=== PATIENT | female | born 1965 | race African-American/Black ===

== ENCOUNTER 2019-07-05 21:29 | Emergency (ER) | payer MEDICARE, SELFPAY ==
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
[2019-07-05 21:31] VITALS: BP 141/93; PULSE 85; RESP 16; TEMP 36; O2SAT 99
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
--- NOTE | 2019-07-05 21:51 | ECG_ITS ---
Measurements Intervals [place] Rate: 80 P: 69 NC: 166 QRS: 18 QRSD: 85 T: 32 QT: 383 QTc: 443 Interpretive Statements SINUS RHYTHM NORMAL ECG Electronically Signed On 07-06-2019 7:06:23 CDT by Hector Pina D.O.
[2019-07-05 21:58] VITALS: BP 144/95; PULSE 85; RESP 14; O2SAT 99
[2019-07-05 22:00] VITALS: PULSE 82; RESP 20
[2019-07-05] MEDS: ALBUTEROL SULFATE NEB 2.5 MG/0.5 ML INH 5 MG INHALATION (22:08)
[2019-07-05] MEDS: IPRATROPIUM BR 0.02% INH SOLN 0.5 MG/2.5 ML VIAL INHALATION (22:09)
[2019-07-05 22:17] VITALS: PULSE 84; RESP 20
[2019-07-05 22:49] VITALS: BP 131/86; PULSE 86; RESP 17; O2SAT 97
[2019-07-05 23:30] VITALS: BP 119/84; PULSE 84; RESP 18; O2SAT 99
[2019-07-06 00:10] VITALS: BP 124/81; PULSE 82; RESP 16; TEMP 36.9; O2SAT 99
== END 2019-07-06 00:12 | disposition home or self-care (01) ==
PROVIDERS: Emergency Provider Emergency Medicine; PCP Internal Medicine Infectious Disease
DX: J40 Bronchitis, not specified as acute or chronic (principal); Z90.49 Acquired absence of other specified parts of digestive tract
CPT/HCPCS: 71046; 93005; 94640; 99283

== ENCOUNTER 2021-06-25 12:30 | Emergency (ER) | payer MEDICARE, SELFPAY ==
[2021-06-25] VITALS (21 sets, daily range): BP systolic 101–138; BP diastolic 74–92; PULSE 59–85; RESP 10–23; TEMP 36.9; O2SAT 95–100
--- NOTE | ~2021-06-25 | XR_ITS ---
EXAMINATION: XR chest 2V EXAM DATE: 06/25/2021 12:52 INDICATION: Midsternal chest pain for several days. TECHNIQUE: Frontal and lateral projections of the chest obtained and reviewed. There is no prior arsenio dy for comparison. FINDINGS: The lungs are clear. There are no pleural effusions. The cardiomediastinal silhouette is within normal limits. There is no pneumothorax suspected. The bones and soft tissues are unremarkab le. IMPRESSION: No acute cardiopulmonary findings. Reviewed, dictated and finalized at location A. [employer] HELPER
--- NOTE | 2021-06-25 12:34 | ECG_ITS ---
Measurements Intervals [place] Rate: 76 P: 63 SD: 166 QRS: 16 QRSD: 78 T: 30 QT: 399 QTc: 449 Interpretive Statements SINUS RHYTHM NORMAL ECG COMPARED TO ECG 07/05/2019 22:06:18 NO SIGNIFICANT CHANGES Electronically Signed On 06-25-2021 15:49:11 [employer] by Lito More M.D.
--- NOTE | 2021-06-25 12:44 | ED.CHESTPAIN ---
HPI - Chest Pain General Chief Complaint: Chest Pain Stated Complaint: chest pain Time Seen by Provider: 06/25/21 12:34 Source: RN notes reviewed History of Present Illness HPI narrative: Patient presents emergency room from home for chest pain. Patient states the pain is located over the midsternal chest and radiates under the bilateral breasts the pain described as sharp and stabbing. Pain began 3 days ago and is intermittent and last for approximately 5 minutes at a time and is worse with movement of the torso and improves with rest she denies any fevers or chills shortness of breath abdominal pain nausea or vomiting states she not taking thing for the pain denies any previous cardiac history Related Data Allergies Allergy/AdvReac Type Severity Reaction Status Date / Time No Known Allergies Allergy Unverified 10/16/15 09:48 Review of Systems Review of Systems: Gen.: Denies fevers or chills ENT: Denies congestion Respiratory: Denies shortness of breath or cough CV: See HPI GI: Denies abdominal pain nausea, emesis or diarrhea Musculoskeletal: Denies back pain or muscle pain Neuro: Denies numbness, tingling, weakness or focal weakness Skin: Denies rash Except as documented, all other systems reviewed and negative PMFSH Past Medical History Medical History Arthritis Colon cancer Retained ureteral stent Surgical History Surgical History (Updated 07/05/19 @ 22:00 by Cait Castro) H/O colostomy H/O: hysterectomy History of colon resection Social History Social History Smoking status: Current every day smoker Exam Narrative: APPEARANCE: No acute distress, nontoxic, resting in bed EYES: EOMI HEENT: Normocephalic, atraumatic, OMM RESPIRATORY: No respiratory distress Clear to auscultation bilaterally with no rhonchi wheezing or rales. CARDIOVASCULAR: Regular rate and rhythm without murmurs rubs or gallops. Chest: Tender palpation with point tenderness over the right lower chest and region of ribs 7 and 8 just to the right of the sternum pain increased with rotation of torso and flame motion ABDOMINAL: Soft, nontender, nondistended, no rebound or guarding MUSCULOSKELETAl: Moves all extremities. No clubbing, cyanosis or edema. NEURO: Awake and alert. Following commands, speech normal, no focal deficits SKIN:: Warm, dry. No rashes lesions or abrasions PSYCHIATRIC: Normal affect/mood, Course Course Emergency Course: Patient does have chest pain was seen up that resolves when she lays down Discussed with patient results of workup and diagnosis. Discussed need for follow-up with primary care, proper use of medication, and reasons to return to the emergency department. Patient understands and agrees to current treatment plan Vital Signs Vital signs: Vital Signs Temperature 98.5 F 06/25/21 12:34 Pulse Rate 85 06/25/21 12:34 Respiratory Rate 19 06/25/21 12:34 Blood Pressure 138/92 H 06/25/21 12:34 Pulse Oximetry 99 06/25/21 12:34 Temperature 98.5 F 06/25/21 12:34 Pulse Rate 59 L 06/25/21 15:52 Respiratory Rate 15 06/25/21 15:52 Blood Pressure 123/82 06/25/21 15:52 Pulse Oximetry 100 06/25/21 15:52 MDM - Chest Pain MDM Narrative Medical decision making narrative: Patient's EKGs and labs are without significant high risk changes. Cardiac risk factors reviewed. Patient is felt likely low risk for ACS and reasonable for further risk stratification testing as an outpatient. Pain was not sudden or maximal in onset without tearing or ripping quality. No other signs of symptoms suggest aortic dissection. A low-risk Wells criteria is noted, PE is felt to be unlikely. No pneumonia seen on evaluation today. Patient is felt to be a reasonable candidate for continued evaluation as an outpatient Lab Data Result diagrams: 06/25/21 12:40 06/25/21 13:28 Labs:
[2021-06-25 12:45] LABS: Basophils Absolute Auto 0.1 K/mm3 (0.0-0.1); Eosinophils Absolute Auto 0.1 K/mm3 (0-0.3); Eosinophils Percent Auto 1.8 % (0-4.4); Hematocrit 41.3 % (37.0-47.0); Hemoglobin 13.3 g/dL (12.0-15.0); Immature Granulocyte Absolute 0.03 K/mm3 (0.00-0.031); Immature Granulocyte Percent A 0.4 % (0-0.5); Lymphocytes Absolute Auto 3.69 K/mm3 (0.9-3.2); Mean Corpuscular HGB Conc 32.2 g/dl (32-36); Mean Corpuscular Volume 96.3 fl (80-100); Mean Platelet Volume 10.2 fl (7.4-10.4); Monocytes Absolute Auto 0.5 K/mm3 (0.1-0.6); Monocytes Percent Auto 7.9 % (2.6-8.5); Neutrophils Absolute Auto 2.3 K/mm3 (1.3-6.7); Neutrophils Percent Auto 33.9 % (45.5-73.1); Platelet Count Result 266 k/mm3 (150-375); Red Blood Count 4.29 M/mm3 (4.2-5.4); White Blood Count 6.7 K/mm3 (4.5-10.0)
[2021-06-25] MEDS: KETOROLAC 30 MG/ML VIAL (*BKC) IV PUSH (12:53)
[2021-06-25 13:00] LABS: Prothrombin Time 12.7 Seconds (11.1-14.7)
[2021-06-25 13:01] LABS: Partial Thromboplastin Time 27.4 SECONDS (22.3-36.8)
[2021-06-25 13:13] LABS: D Dimer 0.28 ug/mL (<0.48)
[2021-06-25 13:49] LABS: Alanine Aminotransferase 34 U/L (4-35); Alkaline Phosphatase 67 U/L (38-126); Anion Gap 6 mmol/L (8-16); Aspartate Amino Transferase 39 U/L (14-36); Bilirubin,Total 0.3 mg/dL (0.2-1.3); Blood Urea Nitrogen 13 mg/dL (7-17); Calcium 8.5 mg/dL (8.4-10.2); Carbon Dioxide 29 mmol/L (22-30); Chloride 106 mmol/L (98-107); Estimated CRCL calculation 81 ml/min; Estimated Glomerular Filt Rate > 60; Glucose 104 mg/dL (65-110); Lipase 58 U/L (23-300); Potassium 3.8 mmol/L (3.4-5.0); Sodium 141 mmol/L (137-145)
[2021-06-25 14:00] LABS: Troponin I < 0.012 ng/mL (0.000-0.034)
[2021-06-25 16:07] LABS: Troponin I 0.013 ng/mL (0.000-0.034)
== END 2021-06-25 17:23 | disposition home or self-care (01) ==
PROVIDERS: Emergency Provider Emergency Medicine; PCP Internal Medicine Infectious Disease
DX: R07.89 Other chest pain (principal); M19.90 Unspecified osteoarthritis, unspecified site; Z85.038 Personal history of other malignant neoplasm of large intestine; F17.200 Nicotine dependence, unspecified, uncomplicated
CPT/HCPCS: 36415; 71046; 80053; 83690; 84484; 85025; 85380; 85610; 85730; 93005; 96374; 99284; J1885